=== PATIENT | female | born 1985 | race Caucasian/White ===

== ENCOUNTER → 2017-10-04 | Outpatient (CLI) | payer OTHER ==
[~2017-10-04] MED LIST: ASPI-390 PO; AZIT-57 PO; IMD2X PO; LEVE500T13 PO; LYR100 PO; MEDR150I IM; PROM25TA9 PO; RANI150T85 PO
[2017-10-04 13:12] LABS: BASO % 0.3 %; BASO ABS # 0.04 K/uL (0-0.2); EOS % 2.6 %; EOS ABS # 0.36 K/uL (0-0.5); HEMATOCRIT 32.9 % (37-47); IG# 0.05 K/uL (0.00-0.02); LYMPH % 29.8 %; LYMPH ABS # 4.12 K/uL (1.2-3.4); MEAN CELL VOLUME 76.3 fL (80-100); MEAN CORPUSCULAR HEMOGLOBIN 25.5 pg (25-34); MEAN CORPUSCULAR HGB CONC 33.4 g/dl (32-36); MEAN PLATELET VOLUME 9.3 fL (7.4-10.4); MONO % 5.6 %; MONO ABS # 0.77 K/uL (0.11-0.59); NEUT % 61.3 %; NEUT ABS # 8.47 K/uL (1.4-6.5); PLATELET COUNT 514 K/uL (130-400); RED CELL DISTRIBUTION WIDTH CV 16.5 % (11.5-14.5); RED CELL DISTRIBUTION WIDTH SD 46.3 fL (36.4-46.3); WHITE BLOOD COUNT 13.81 K/uL (4.8-10.8)
[2017-10-04 13:43] LABS: HEMOGLOBIN A1C 5.8 % (4.5-5.6)
[2017-10-04 13:52] LABS: ALBUMIN 4.4 gm/dl (3.4-5.0); ALT/SGPT 17 U/L (12-78); AST/SGOT 11 U/L (15-37); BLOOD UREA NITROGEN 13 mg/dl (7-18); CALCIUM 8.7 mg/dl (8.5-10.1); CARBON DIOXIDE 15 mmol/L (21-32); GLUCOSE 91 mg/dl (70-99); POTASSIUM 3.4 mmol/L (3.5-5.1); SODIUM 137 mmol/L (136-145)
[2017-10-04 14:02] LABS: ALKALINE PHOSPHATASE 66 U/L (45-117); TOTAL PROTEIN 8.9 gm/dl (6.4-8.2)
== END | disposition home or self-care (01) ==
LOC: C.LABBC 11:22
PROVIDERS: ATTEND Physician Assistant Medical
DX: D64.9 Anemia, unspecified (principal); N18.9 Chronic kidney disease, unspecified; R73.9 Hyperglycemia, unspecified; K31.84 Gastroparesis

== ENCOUNTER 2020-03-25 12:21 | Observation (INO) ==
[2020-03-25] MEDS ORDERED: ALBUTEROL HFA 8 GM INHALER INH ONE (13:13)
[2020-03-25] MEDS ORDERED: KETOROLAC TROMETHAMINE 15 MG/ML VIAL IV STA (13:13)
[2020-03-25] MEDS ORDERED: BENZONATATE 100 MG CAPSULE PO ONE (13:13)
[2020-03-25] MEDS ORDERED: SODIUM CHLORIDE 0.9% 1000ML 1,000 ML IV SCH ×2 (13:17→16:04)
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
[2020-03-25 14:06] LABS: POC Urine Bilirubin Negative (Negative); POC Urine Blood Negative (Negative); POC Urine Glucose Normal (Normal); POC Urine Ketones Negative (Negative); POC Urine Leukocytes Negative (Negative); POC Urine Nitrite Negative (Negative); POC Urine Protein Trace (Negative); POC Urine Urobilinogen Normal (Normal); POC Urine pH 5 (4.5-7.5)
[2020-03-25 14:08] LABS: Hematocrit (blood only) 31.4 % (37-47); Hemoglobin 10.6 g/dL (12.0-16.0); Mean Corpuscular Hemoglobin 27.3 pg (25-34); Mean Corpuscular Hgb Conc 33.8 g/dL (32-36); Mean Corpuscular Volume 80.9 fL (80-100); Mean Platelet Volume 9.1 fL (7.4-10.4); Platelet Count 435 K/uL (130-400); RDW Coefficient of Variation 13.6 % (11.5-14.5); RDW Standard Deviation 40.3 fL (36.4-46.3); Red Blood Count 3.88 M/uL (4.2-5.4); White Blood Count 26.63 K/uL (4.8-10.8)
[2020-03-25 14:24] LABS: Basophils # (auto) 0.02 K/uL (0-0.2); Basophils % (auto) 0.1 %; Eosinophils # (auto) 0.07 K/uL (0-0.5); Eosinophils % (auto) 0.3 %; Immature Granulocytes # (auto) 0.12 K/uL (0.00-0.02); Immature Granulocytes % (auto) 0.5 %; Lymphocytes # (auto) 2.25 K/uL (1.2-3.4); Lymphocytes % (auto) 8.4 %; Monocytes # (auto) 1.18 K/uL (0.11-0.59); Monocytes % (auto) 4.4 %; Neutrophils # (auto) 22.99 K/uL (1.4-6.5); Neutrophils % (auto) 86.3 %
--- NOTE | 2020-03-25 14:34 | XRay Report ---
XR chest 1V portable CLINICAL HISTORY: CHEST PAIN, COUGH COMPARISON STUDY: 01/15/2016 FINDINGS: The heart is at the upper limits of normal in size. There is right paratracheal soft tissue prominence. Mild adenopathy cannot be excluded. There are bilateral pulmonary airspace opacities lef t greater than right, suspicious for a multifocal pneumonia.[ IMPRESSION: 1. Bilateral pulmonary airspace opacities left greater than right, suspicious for a multifocal pneumo kary 2. Right paratracheal soft tissue prominence. Reactive adenopathy cannot be excluded 3. Clinical and radiographic follow-up recommended ACT 112: Negative or not required by law. Electronically signed by: Yossi Allison M.D. 03/25/2020 2:32 PM
[2020-03-25 14:36] LABS: Alanine Aminotransferase 17 U/L (12-78); Albumin Level 3.3 gm/dl (3.4-5.0); Aspartate Aminotransferase 46 U/L (15-37); BUN Creatinine Ratio 11.1 (10-20); Blood Urea Nitrogen 14 mg/dl (7-18); Calcium 8.7 mg/dl (8.5-10.1); Carbon Dioxide 20 mmol/L (21-32); Chloride 111 mmol/L (98-107); Creatinine Clr Calc Pharmacy 55.4 ml/min; Est GFR (African American) 65.8; Est GFR (Non-African American) 56.8; Glucose 122 mg/dl (70-99); Sodium 139 mmol/L (136-145)
[2020-03-25 14:47] LABS: Albumin Globulin Ratio 0.9 (0.9-2); Alkaline Phosphatase 53 U/L (45-117); Bilirubin,Total 0.3 mg/dl (0.2-1); Globulin 3.7 gm/dl (2.5-4.0); Thyroid Stimulating Hormone 0.929 uIu/ml (0.300-4.500); Troponin I < 0.015 ng/ml (0-0.045)
[2020-03-25] MEDS ORDERED: cefTRIAXone SODIUM 2,000 MG/70 ML BAG IV STA (16:03)
[2020-03-25] MEDS ORDERED: DOXYCYCLINE HYCLATE 100 MG in DEXTROSE 5% 100 ML IV STA (16:03)
[2020-03-25 17:19] LABS: HCO3 VBG 21 mmol/L; PCO2 VBG 45 mmHg (38-50); PO2 VBG 30 mmHg; pH VBG 7.28 (7.36-7.41)
[2020-03-25 17:21] LABS: Oxygen Saturation VBG < 60.0 %
[2020-03-25] MEDS: SODIUM CHLORIDE 0.9% 1000ML 1,000 ML IV SCH ×2 (17:42→20:51)
--- NOTE | 2020-03-25 18:16 | History & Physical Report ---
Date of Service March 25, 2020 Assessment & Plan (1) PNA (pneumonia): Noted on CXR Started on ceftriaxone/doxy in the ED, will continue (azithro allergy) COVID neg Flu pending Blood cx pending WBC elevated Preg test neg (2) BRETT (acute kidney injury): Likely dehydration related to PNA IVF Monitor (3) Somnolence: Concern from ED about possible substance injestion Utox pending collection Pt is difficult to arouse and does not keep her eyes open for long, likely this is mild exacerbation of MG in the setting of other illness Pt also reports that she has this issue when she is ill TSH WNL (4) Myasthenia gravis: Pt is very difficult to arouse, likely related to her MG status continue home meds (5) Seizure disorder: levetiracetam levels pending Denies current seizures (6) Hypothyroidism: continue home meds (7) Fibromyalgia: continue home meds (8) Crohn's disease: Noted (9) Anemia: Hb baseline 10-11 Hb 10.6 on admission (10) DVT prophylaxis: Heparin for DVT proph History of Present Illness Primary Care Provider: Uriah Bucio MD 34 y/o F c/o feeling unwell since last . Pt is very difficult to arouse. She states "that is how I get when I am sick". Has had fevers, body aches since that time. Decreased PO. Denies missing any meds or taking extra meds. Pt denies SOB, chest pain, abd pain, n/v/c/d, LE pain or swelling. Pt states her seizures are well controlled and no seizures in years. Allergies Allergy/AdvReac Type Severity Reaction Status Date / Time codeine Allergy Severe RASH, RESP Verified 03/25/20 13:35 PROBLEMS Cipro Allergy Mild ITCHY Verified 11/13/15 22:59 ciprofloxacin Allergy Mild ITCHY Verified 03/25/20 13:35 aspirin [From Soma Compound] Allergy Unknown Unknown Unverified 03/25/20 13:35 sumatriptan Allergy Unknown SWELLING Verified 03/25/20 13:35 carisoprodol AdvReac Mild irrational Verified 03/25/20 13:35 behavior metoclopramide AdvReac Mild shaking Verified 03/25/20 13:35 morphine AdvReac Mild acts Verified 03/25/20 13:35 irrational azithromycin AdvReac Unknown [email or web address] Verified 03/25/20 13:35 sis topiramate [From Topamax] AdvReac insomnia Unverified 03/25/20 13:35 Home Medications Home Medications Medication Instructions Recorded Confirmed Type rizatriptan 10 mg disintegrating 10 mg PO Q2H PRN tab 04/14/19 03/25/20 History tablet levothyroxine 50 mcg tablet 50 mcg PO DAILY tab 05/07/19 03/25/20 History medroxyprogesterone 150 mg/mL 150 mg IM USEASDIRECTD ml 05/07/19 03/25/20 History intramuscular suspension pyridostigmine bromide 60 mg tablet 60 mg PO TID PRN tab 05/07/19 03/25/20 History levetiracetam 500 mg tablet 500 mg PO BID 30 Days #60 tab 07/03/19 03/25/20 Rx CBD oil See Rx Instructions .ROUTE 07/28/19 03/25/20 Rx .COMPLEX #1 ea pregabalin 100 mg capsule 100 mg PO QAM #30 cap 11/03/19 03/25/20 Rx pregabalin 50 mg capsule 50 mg PO QPM #30 cap 02/07/20 03/25/20 Rx pregabalin 150 mg capsule 150 mg PO ONCE #30 cap 03/05/20 03/25/20 Rx promethazine 25 mg tablet See Rx Instructions .ROUTE 03/18/20 03/25/20 Rx .COMPLEX #20 tablet Past Med/Surg History Medical History Crohn's disease Fibromyalgia Hypothyroidism Migraine syndrome Myasthenia gravis Seizure disorder (08/24/11) Surgical History History of lithotripsy S/P cholecystectomy S/P tonsillectomy and adenoidectomy Status post tubal ligation Family History Mother Diabetes Chronic kidney disease Hyperlipidemia Peripheral vascular disease Kidney disease Father Low back pain Brother Mental disability Family/Other Migraine headache Social History Smoking Status: Current every day smoker Tobacco Type: E-cigarettes / Vaping marital status: current occupational status: disabled Feels Safe at Home: Yes Review of Systems Review of Systems: Pertinent positives and negatives reviewed in HPI--all others negative Physical Exam Constitutional: WD/WN, vitals as above + ill appearing Eyes: normal visual chen by confrontation and + anicteric sclerae eyes are difficult for pt to open Neck: normal visual inspection and trachea midline Respiratory: normal respiratory effort, lungs clear to auscultation Cardiovascular: Rate/Rhythm: regular rate and regular rhythm Gastrointestinal (Abdomen): Inspection/Auscultation: abdomen not distended Percussion/Palpation: abdomen soft; abdomen nontender Musculoskeletal: Head/Neck/Chest: normocephalic and head atraumatic negative for edema, peripheral pulses intact Skin: no rashes, warm and dry Neurologic: awake; not confused Speech / Cognition: + abnormal speech (trails off prior to finishing sentences) Psychiatric: Orientation: oriented to person, oriented to place, oriented to time and cooperative Affect: + blunted affect Results & Data Results & Data ([facility]) Vital Signs (Past 12 Hours) Vital Signs Temp Pulse Resp BP Pulse Ox 03/25/20 16:30 70 16 91 03/25/20 16:22 71 13 124/79 03/25/20 16:00 75 21 99/56 L 03/25/20 15:30 77 15 103/55 L 03/25/20 15:28 78 20 03/25/20 15:27 74 11 L 96/55 L 03/25/20 15:15 78 13 03/25/20 15:00 77 12 03/25/20 14:45 79 14 03/25/20 14:30 78 14 03/25/20 14:15 83 12 03/25/20 14:00 79 17 03/25/20 13:50 85 18 03/25/20 13:49 80 13 105/55 L 03/25/20 13:30 87 13 96 03/25/20 13:00 94 H 14 97 03/25/20 12:50 90 15 94 03/25/20 12:38 90 15 124/48 L 95 03/25/20 12:31 37.4 C 96 H 18 124/48 L 95 Diagnostic Findings CXR: b/l L>R multifocal PNA Code Status & VTE Plan Code Status Pt unable to answer questions fully, entered as full but will need addressed VTE Prophylaxis Plan VTE Prophylaxis will be ordered: Yes PG Care Time/CCT Total # of Minutes Spent Total Time Spent with Patient: Total time spent is greater than 50% in coordination of care (as documented) at patient's floor/unit and/or counseling patient: Coding Level of Care Code 05275 Initial Inpt Care Lvl 3 Diagnoses PNA (pneumonia) J18.9 BRETT (acute kidney injury) N17.9 Somnolence R40.0 Myasthenia gravis G70.00 Seizure disorder G40.909 Hypothyroidism E03.9 Fibromyalgia M79.7 Crohn's disease K50.90 Anemia D64.9 DVT prophylaxis Z29.9
[2020-03-25 19:25] LABS: Influenza A virus by PCR Negative (Negative); Influenza B virus by PCR Negative (Negative)
[2020-03-25] MEDS ORDERED: ACETAMINOPHEN 325 MG TAB PO PRN (20:19)
[2020-03-25] MEDS ORDERED: MAGNESIUM HYDROXIDE SUSP 30 ML UDC PO PRN (20:19)
[2020-03-25] MEDS ORDERED: PROMETHAZINE HCL 25 MG TAB PO PRN (20:19)
[2020-03-25] MEDS ORDERED: PREGABALIN 150 MG CAP PO PRN (20:19)
[2020-03-25] MEDS ORDERED: PYRIDOSTIGMINE BROMIDE 60 MG TAB PO PRN (20:19)
[2020-03-25] MEDS ORDERED: ONDANSETRON INJ 2 MG/ML 2 ML VIAL IV PRN (20:19)
[2020-03-25] MEDS ORDERED: PREGABALIN 50 MG CAP PO SCH (21:00)
[2020-03-25 21:18] LABS: Amphetamines+Metham, Urine Neg (Neg); Barbiturates, Urine Neg (Neg); Benzodiazepine, Urine Neg (Neg); Cocaine, Urine Neg (Neg); MDMA (Ecstacy), Urine Neg (Neg); Methadone, Urine Neg (Neg); Opiate, Urine Neg (Neg); Phencyclidine, Urine Neg (Neg)
[2020-03-25] MEDS: levETIRAcetam 500 MG TAB PO SCH (21:21)
[2020-03-25] MEDS: HEPARIN SOD 5,000 UNIT/0.5 ML VIAL SQ SCH (21:21)
[2020-03-25] MEDS: SODIUM CHLORIDE 0.45 % 1,000 ML IV SCH (21:21)
[2020-03-26] MEDS: LEVOTHYROXINE SODIUM 50 MCG TABLET PO SCH (05:33)
--- NOTE | 2020-03-26 05:34 | Electrocardiogram Report ---
Test Reason : Blood Pressure : / mmHG Vent. Rate : 085 BPM Atrial Rate : 085 BPM P-R Int : 200 ms QRS Dur : 094 ms QT Int : 368 ms P-R-T Axes : 045 022 006 degrees QTc Int : 437 ms Normal sinus rhythm Possible Left atrial enlargement T wave abnormality, consider anterior ischemia Abnormal ECG When compared with ECG of 13-NOV-2015 23:07, QT has shortened Confirmed by William Carl ([id number]) on 03/26/2020 5:34:19 AM Referred By: REFERRED SELF Confirmed By:William Carl
[2020-03-26] MEDS: SODIUM CHLORIDE 0.45 % 1,000 ML IV SCH (05:35)
[2020-03-26] MEDS: HEPARIN SOD 5,000 UNIT/0.5 ML VIAL SQ SCH ×2 (08:04→21:02)
[2020-03-26] MEDS: DOXYCYCLINE HYCLATE 100 MG in DEXTROSE 5% 100 ML IV SCH ×2 (08:04→21:01)
[2020-03-26] MEDS: levETIRAcetam 500 MG TAB PO SCH ×2 (08:04→21:01)
[2020-03-26] MEDS: PREGABALIN 100 MG CAP PO SCH (08:06)
[2020-03-26 09:27] LABS: Basophils # (auto) 0.02 K/uL (0-0.2); Basophils % (auto) 0.1 %; Eosinophils # (auto) 0.29 K/uL (0-0.5); Eosinophils % (auto) 1.8 %; Hematocrit (blood only) 32.6 % (37-47); Hemoglobin 10.8 g/dL (12.0-16.0); Immature Granulocytes # (auto) 0.04 K/uL (0.00-0.02); Immature Granulocytes % (auto) 0.2 %; Lymphocytes # (auto) 3.09 K/uL (1.2-3.4); Lymphocytes % (auto) 18.8 %; Mean Corpuscular Hgb Conc 33.1 g/dL (32-36); Mean Corpuscular Volume 81.5 fL (80-100); Mean Platelet Volume 9.2 fL (7.4-10.4); Monocytes # (auto) 0.88 K/uL (0.11-0.59); Monocytes % (auto) 5.4 %; Neutrophils # (auto) 12.08 K/uL (1.4-6.5); Neutrophils % (auto) 73.7 %; Platelet Count 413 K/uL (130-400); RDW Coefficient of Variation 13.9 % (11.5-14.5)
[2020-03-26 09:59] LABS: BUN Creatinine Ratio 11.3 (10-20); Calcium 8.5 mg/dl (8.5-10.1); Creatinine Clr Calc Pharmacy 89.8 ml/min; Est GFR (African American) 115.9; Magnesium 1.6 mg/dl (1.8-2.4); Phosphorus 1.9 mg/dl (2.5-4.9); Potassium 3.9 mmol/L (3.5-5.1)
--- NOTE | 2020-03-26 13:07 | Hospitalist Progress Note ---
Date of Service March 26, 2020 Assessment & Plan (1) PNA (pneumonia): Multifocal. Noted on CXR. - Continue ceftriaxone/doxy - Much improved today. Likely discharge on cefdinir & doxycycline given levofloxacin can precipitate myasthenia crisis. (2) BRETT (acute kidney injury): Baseline normal Cr ~0.7. - Up to 1.23 on admission. - Resolved with IV fluids. (3) Myasthenia gravis: On 03/26, she is at baseline per her report. No breathing issues, no fatigue in eyes or arms, no swallowing issues. - Continue home meds - Avoid medications that can trigger crisis. (4) Somnolence: Concern from ED about possible substance ingestion; however, Utox negative. Per patient and sister, she has this issue when she is ill. - TSH WNL - Resolved by 03/26. (5) Seizure disorder: Denies current seizures. - Continue home meds - Levetiracetam level pending (6) Hypothyroidism: TSH was 0.93 during this admission. No signs/symptoms of hypo- /hyperthyroidism. - Continue home Synthroid 50 mcg (7) Fibromyalgia: No pain at present. - Continue home meds (8) Crohn's disease: Noted. (9) Anemia: Hb baseline 10-11. Hb 10.6 on admission. - Monitor (10) DVT prophylaxis: Heparin 5,000 units SQ Q12h Admission and Anticipated Discharge Date Admission Date: March 25, 2020 Subjective Much, much improved today. Much more alert and awake. Cough and shortness of breath improved. Reports no fevers/chills, chest pain, abdominal pain, nausea, or vomiting. Physical Exam Constitutional: WD/WN, vitals as above Eyes: EOM intact bilaterally; no conjunctival abnormality ENMT: external ear and nose normal, oropharynx normal Neck: trachea midline, no thyromegaly normal visual inspection Respiratory: no respiratory distress Auscultation: + crackles (LLL) Cardiovascular: RRR, no murmur, no edema Gastrointestinal (Abdomen): Inspection/Auscultation: abdomen normal to inspection; abdomen not distended Musculoskeletal: no cyanosis or clubbing, extremities motor strength 5/5 Skin: no rashes, warm and dry Neurologic: moves all extremities and awake Psychiatric: Orientation: alert, oriented to person and cooperative Results & Data Results & Data ([facility]) Vital Signs (Past 12 Hours) Vital Signs Temp Pulse Resp BP Pulse Ox 03/26/20 10:58 37.2 C 95 H 19 129/86 98 03/26/20 07:11 36.4 C L 89 19 122/77 99 03/26/20 04:00 36.8 C 89 20 122/78 98 PG Care Time/CCT Total # of Minutes Spent Total Time Spent with Patient: Total time spent is greater than 50% in coordination of care (as documented) at patient's floor/unit and/or counseling patient: Coding Level of Care Code 34598 Subseq Hosp Care Lvl 2 Diagnoses PNA (pneumonia) J18.9 BRETT (acute kidney injury) N17.9 Myasthenia gravis G70.00 Somnolence R40.0 Seizure disorder G40.909 Hypothyroidism E03.9 Fibromyalgia M79.7 Crohn's disease K50.90 Anemia D64.9 DVT prophylaxis Z29.9
[2020-03-26] MEDS ORDERED: cefTRIAXone SODIUM 1,000 MG in DEXTROSE 5% 50 ML IV SCH (17:00)
[2020-03-26] MEDS: POT PHOSPHATE MONOBASIC W/ SOD TAB PO SCH ×2 (17:01→21:01)
[2020-03-26] MEDS ORDERED: PREGABALIN 150 MG CAP PO PRN (19:17)
[2020-03-26] MEDS ORDERED: PREGABALIN 50 MG CAP PO SCH (19:25)
[2020-03-27] MEDS: LEVOTHYROXINE SODIUM 50 MCG TABLET PO SCH (05:48)
[2020-03-27 07:33] VITALS: BP 97/63; TEMP 98.4; O2SAT 96
[2020-03-27 07:37] LABS: Hematocrit (blood only) 29.9 % (37-47); Hemoglobin 10.1 g/dL (12.0-16.0); Mean Corpuscular Hemoglobin 27.2 pg (25-34); Mean Corpuscular Hgb Conc 33.8 g/dL (32-36); Mean Corpuscular Volume 80.6 fL (80-100); Mean Platelet Volume 9.2 fL (7.4-10.4); Platelet Count 418 K/uL (130-400); RDW Coefficient of Variation 13.8 % (11.5-14.5); RDW Standard Deviation 40.7 fL (36.4-46.3); Red Blood Count 3.71 M/uL (4.2-5.4); White Blood Count 10.58 K/uL (4.8-10.8)
[2020-03-27] MEDS: PREGABALIN 100 MG CAP PO SCH (07:55)
[2020-03-27] MEDS: levETIRAcetam 500 MG TAB PO SCH (07:55)
[2020-03-27] MEDS: POT PHOSPHATE MONOBASIC W/ SOD TAB PO SCH (07:56)
[2020-03-27] MEDS: HEPARIN SOD 5,000 UNIT/0.5 ML VIAL SQ SCH (07:57)
[2020-03-27 08:11] LABS: BUN Creatinine Ratio 10.6 (10-20); Creatinine Clr Calc Pharmacy 82.3 ml/min; Est GFR (African American) 104.4; Magnesium 1.7 mg/dl (1.8-2.4); Potassium 3.4 mmol/L (3.5-5.1)
[2020-03-27 08:12] LABS: Phosphorus 4.2 mg/dl (2.5-4.9)
[2020-03-27 08:41] VITALS: PULSE 85
--- NOTE | 2020-03-27 22:02 | Discharge Summary ---
Date of Service March 27, 2020 Admission HPI Per Admitting Provider 34 y/o F c/o feeling unwell since last . Pt is very difficult to arouse. She states "that is how I get when I am sick". Has had fevers, body aches since that time. Decreased PO. Denies missing any meds or taking extra meds. Pt denies SOB, chest pain, abd pain, n/v/c/d, LE pain or swelling. Pt states her seizures are well controlled and no seizures in years. Principal Diagnosis Community-acquired pneumonia Discharge Exam Constitutional WD/WN, vitals as above Eyes EOM intact bilaterally; no conjunctival abnormality ENMT external ear and nose normal, oropharynx normal Neck trachea midline, no thyromegaly normal visual inspection Respiratory no respiratory distress Auscultation: + crackles (LLL) Cardiovascular RRR, no murmur, no edema Gastrointestinal (Abdomen) Inspection/Auscultation: abdomen normal to inspection; abdomen not distended Musculoskeletal no cyanosis or clubbing, extremities motor strength 5/5 Skin no rashes, warm and dry Neurologic moves all extremities and awake Psychiatric Orientation: alert, oriented to person and cooperative Discharge Data Allergies Allergy/AdvReac Type Severity Reaction Status Date / Time codeine Allergy Severe RASH, RESP Verified 03/25/20 13:35 PROBLEMS Cipro Allergy Mild ITCHY Verified 11/13/15 22:59 ciprofloxacin Allergy Mild ITCHY Verified 03/25/20 13:35 aspirin [From Soma Compound] Allergy Unknown Unknown Unverified 03/25/20 13:35 sumatriptan Allergy Unknown SWELLING Verified 03/25/20 13:35 carisoprodol AdvReac Mild irrational Verified 03/25/20 13:35 behavior metoclopramide AdvReac Mild shaking Verified 03/25/20 13:35 morphine AdvReac Mild acts Verified 03/25/20 13:35 irrational azithromycin AdvReac Unknown [email or web address] Verified 03/25/20 13:35 sis topiramate [From Topamax] AdvReac insomnia Unverified 03/25/20 13:35 Consultations 03/25/20 16:22 ED Decision to Admit Stat Hospital Course (1) PNA (pneumonia): Multifocal. Noted on CXR. - Continued ceftriaxone/doxy while inpatient. - Much improved today. Discharged on cefdinir & doxycycline given levofloxacin can precipitate myasthenia crisis. (2) BRETT (acute kidney injury): Baseline normal Cr ~0.7. - Up to 1.23 on admission. - Resolved with IV fluids. (3) Myasthenia gravis: On 03/26, she is at baseline per her report. No breathing issues, no fatigue in eyes or arms, no swallowing issues. - Continue home meds - Avoid medications that can trigger crisis. (4) Somnolence: Concern from ED about possible substance ingestion; however, Utox negative. Per patient and sister, she has this issue when she is ill. - TSH WNL - Resolved by 03/26. (5) Seizure disorder: Denies current seizures. - Continue home meds - Levetiracetam level pending (6) Hypothyroidism: TSH was 0.93 during this admission. No signs/symptoms of hypo- /hyperthyroidism. - Continue home Synthroid 50 mcg (7) Fibromyalgia: No pain at present. - Continue home meds (8) Crohn's disease: Noted. (9) Anemia: Hb baseline 10-11. Hb 10.6 on admission. - Monitor (10) DVT prophylaxis: Heparin 5,000 units SQ Q12h Total Time Total Time Spent Total Time Spent (In Minutes): 35 Discharge Plan Discharge Items Patient Disposition: Home - Self-Care Reason For Visit: PNA Discharge Diagnosis: Pneumonia Activity: Resume your previous activity Non-emergency contact: Primary Care Provider Call non-emergency contact if: your symptoms worsen and your temperature is above 101 Follow-up/Referrals: Uriah Bucio MD [Primary Care Provider] - 04/02/20 2:00 pm (Appointment will be with Saundra Alejandra) Diet: Regular Addtl Attending Provider Instructions: Ms. Aponte, You were diagnosed with pneumonia. We gave you antibiotics which have rapidly made you feel better. Please take your next dose of both antibiotics this evening before bedtime. You will take them each twice a day until they are gone (for the next 5 days). Please follow up with Dr. Bucio next week to be sure you are doing well. If you start to experience any neurologic symptoms (weakness), please contact your neurologist. Pending Studies at Discharge: No Stand-Alone Forms: My [employer], Smoking Cessation Medications and DC Order Prescriptions: New cefdinir 300 mg capsule 300 mg PO BID 5 Days Qty: 10 RF: 0 doxycycline hyclate 100 mg capsule 100 mg PO BID Qty: 10 RF: 0 Continued levetiracetam 500 mg tablet 500 mg PO BID 30 Days Qty: 60 RF: 2 CBD oil See Rx Instructions .ROUTE .COMPLEX Qty: 1 RF: 0 pregabalin [Lyrica] 100 mg capsule 100 mg PO QAM Qty: 30 RF: 4 pregabalin [Lyrica] 50 mg capsule 50 mg PO QPM Qty: 30 RF: 1 pregabalin 150 mg capsule 150 mg PO ONCE Qty: 30 RF: 1 promethazine 25 mg tablet See Rx Instructions .ROUTE .COMPLEX Qty: 20 RF: 0 rizatriptan 10 mg tablet,disintegrating 10 mg PO Q2H PRN (Reason: Headache) RF: 0 pyridostigmine bromide 60 mg tablet 60 mg PO TID PRN (Reason: Muscle Pain) RF: 0 medroxyprogesterone 150 mg/mL suspension 150 mg IM USEASDIRECTD RF: 0 levothyroxine 50 mcg tablet 50 mcg PO DAILY RF: 0 Discharge Orders: Discharge Order (Routine); Ordered 03/27/20 Ordered By: Yuriy Sharif Admission Data Admit Date/Time: 03/25/20 18:11 Attending Provider: Yuriy Sharif Admit Provider: Dedra Pederson Primary Care Provider: Uirah Bucio Other Providers: Dedra Pederson Other Interventions: Discharge Summary Assessment (RN) Last Done: 03/27/20 08:39 Coding Level of Care Code D/C Day Management >30 mins Diagnoses PNA (pneumonia) J18.9 BRETT (acute kidney injury) N17.9 Myasthenia gravis G70.00 Somnolence R40.0 Seizure disorder G40.909 Hypothyroidism E03.9 Fibromyalgia M79.7 Crohn's disease K50.90 Anemia D64.9 DVT prophylaxis Z29.9
== END 2020-03-27 09:30 | disposition home or self-care (01) ==
LOC: ED 12:21 → INTOOBSV 18:11 → 2S 18:11 → SUATTDRO 18:11 → 2S 19:11 → 2N 03-26 18:16
DX: E03.9 Hypothyroidism, unspecified; Z88.6 Allergy status to analgesic agent; Z88.1 Allergy status to other antibiotic agents; Z88.8 Allergy status to other drugs, medicaments and biological substances; Z87.891 Personal history of nicotine dependence; N17.9 Acute kidney failure, unspecified; Z79.899 Other long term (current) drug therapy; Z20.828 Contact with and (suspected) exposure to other viral communicable diseases; R40.0 Somnolence; G70.00 Myasthenia gravis without (acute) exacerbation; R05 Cough; K50.90 Crohn's disease, unspecified, without complications; Z88.5 Allergy status to narcotic agent; D64.9 Anemia, unspecified; G40.909 Epilepsy, unspecified, not intractable, without status epilepticus; J18.9 Pneumonia, unspecified organism; M79.7 Fibromyalgia

== ENCOUNTER 2021-12-09 14:28 | Observation (INO) ==
[2021-12-09] MEDS ORDERED: SODIUM CHLORIDE 0.9% 1000ML 1,000 ML IV SCH (14:45)
--- NOTE | 2021-12-09 14:53 | Emergency Department Note ---
Impression & Plan Altered mental status, Tachycardia, Leukocytosis, BRETT (acute kidney injury) ED Provider Note NAME: DEMETRIUS THOMAS AGE: 36 SEX: F : 1985 ARRIVES VIA: Ambulance INFORMANT: [Patient][police, ems] ED PROVIDER(S): [Umair Barriga MD] CHIEF COMPLAINT: Altered mental state HISTORY OF PRESENT ILLNESS: The patient is a 36-year-old female who was apparently wandering around in the [employer] store for several hours. She seemed confused, tired, sleepy and lethargic. The police were called. The patient was brought by ambulance for evaluation. The patient denies any pain. She is a very poor historian though. She is quite sleepy. There has been no reported trauma. Given her mental state, no further history obtainable. REVIEW OF SYSTEMS: Unobtainable given the mental state. PMHx/PSHx: See Below SOCIAL HISTORY: See Below. PHYSICAL EXAM: GENERAL: Patient is in no acute distress. HEENT: No acute trauma, normocephalic atraumatic, mucous membranes dry, no nasal congestion, no scleral icterus. NECK: No stridor, no adenopathy, no meningismus, trachea is midline. LUNGS: Clear to auscultation bilaterally, no wheeze, no rhonchi, breath sounds equal. HEART: Subtle systolic murmur, regular rhythm, mildly tachycardic ABDOMEN: Soft, nontender, bowel sounds positive, no peritonitis. EXTREMITIES: No cyanosis or edema, full range of motion of all the joints without pain or difficulty, no signs for acute trauma. There are some dark m arks on both anterior knees consistent with crawling on the knees, no laceration requiring repair. NEUROLOGIC: Awakes to voice, answers questions, moves all extremities, quite sleepy. Becomes agitated when stimulated. SKIN: No rash, no jaundice, no diaphoresis. DIFFERENTIAL DIAGNOSIS: Infection, drug abuse, alcohol abuse, sepsis, renal or liver failure, dehydration, metabolic abnormality, hypo/hyperglycemia, electrolyte disturbance, anemia, hypoxia, cardiac sources, intracerebral event, toxicologic issues, stroke, TIA, as well as other pathologies. EMERGENCY DEPARTMENT COURSE/PROCEDURES: ECG: Indication was altered mental state. The ECG shows a sinus tachycardia with a rate of 114. There is no ST elevation, no PVCs. There is an incomplete right bundle-branch block. The QTc is 452. Continuous Cardiac Monitoring: An order was placed for continuous cardiac monitoring. The monitor shows a rate of 113 with sinus tachycardia. Critical Care Note: I have personally spent 49 minutes of critical care time in the direct management of this patient. This includes bedside care, i nterpretation of diagnostic studies, and testing, discussion with consultants, patient, and family members, and other required patient management activities. This 49 minutes is in excess of all separately billable procedures. MEDICAL DECISION MAKING: There is a moderate leukocytosis at 15,000, this type of elevation has been documented before. This could be consistent with infection or the stress of her situation. There is a mild anemia with a hemoglobin of 11.5. Platelet count slightly elevated at 429. Creatinine was elevated consistent with some mild acute kidney injury. No electrolyte abnormality in need of emergent correction. Lactic acid level was not elevated. No concerning liver enzyme elevation. Ammonia level was not elevated. ECG shows a sinus tachycardia, no ischemia. Cardiac enzyme testing x1 is not consistent with acute cardiac injury. The pa tiegabriel appeared to be in a euthyroid state. Urinalysis did not show infection. Urine tox is pending. Alcohol, Tylenol and alcohol levels were undetectable. COVID test was negative. Chest film did not show pneumonia or CHF. Brain CT showed no acute bleed or mass-effect. On exam, the patient was somnolent and somewhat agitated when stimulated. There was no meningismus. I talked to the patient's who arrived later, he states that she was fine today without complaints. She was at [facility] and then suddenly, seemed confused and altered. He states this has happened to her before and no diagnosis has ever been made. He thinks it may have some to do with her poor sleep. He thinks she has some sort of sleep disorder. The patient received IV saline, 1 L. She was given IV Toradol, IV Tylenol, she received IV ceftriaxone as empiric antibiotic coverage. I had considered performing a lumbar puncture however, the patient apparently was fine 1 minute and then not fine the next. This does not fit with meningitis. She was not complaining of a headache earlier and had not run a f ever. I do not think the lumbar puncture is currently indicated. I spoke with the patient and the , I spoke with case management, the on- call hospitalist was consulted. Past Med/Surg History Medical History Crohn's disease Fibromyalgia Hypothyroidism Migraine syndrome Multifocal pneumonia Myasthenia gravis Seizure disorder (08/24/11) Surgical History History of lithotripsy S/P cholecystectomy S/P tonsillectomy and adenoidectomy Status post tubal ligation Family History Mother Diabetes Chronic kidney disease Hyperlipidemia Peripheral vascular disease Kidney disease Father Low back pain Brother Mental disability Family/Other Migraine headache Social History Smoking Status: Unknown if ever smoked Tobacco Type: E-cigarettes / Vaping Second Hand Exposure: No; Hx Alcohol Use: No Hx Substance Use: No Preferred Language: Citizen Of [place] Communication Ability: Effective Beliefs That Will Affect Care: None marital status: Current Living Situation: Family current occupational status: disabled Feels Safe at Home: Yes caffeine: Yes Dental Care, Regularly: No Physical Activity Frequency: 5-6 Times per Week Seatbelt Use: always Sunscreen Use: Yes Assistive Devices: None Allergies Allergies Allergy/AdvReac Type Severity Reaction Status Date / Time codeine Allergy Severe RASH, RESP Verified 07/02/21 11:03 PROBLEMS ciprofloxacin Allergy Mild ITCHY Verified 07/02/21 11:03 aspirin [From Soma Compound] Allergy Unknown Unknown Verified 07/02/21 11:03 sumatriptan Allergy Unknown SWELLING Verified 07/02/21 11:03 carisoprodol AdvReac Mild irrational Verified 07/02/21 11:03 behavior metoclopramide AdvReac Mild shaking Verified 07/02/21 11:03 morphine AdvReac Mild acts Verified 07/02/21 11:03 irrational azithromycin AdvReac Unknown rhabdomyoly Verified 07/02/21 11:03 sis topiramate [From Topamax] AdvReac insomnia Verified 07/02/21 11:03 Home Meds Home Medications Medication Instructions Recorded Confirmed medroxyprogesterone 150 mg/mL 150 mg IM .[id number] ml 05/07/19 07/02/21 intramuscular suspension Previous Rx's Medication Instructions Recorded cholecalciferol (vitamin D3) 25 25 mcg PO DAILY #30 cap 05/22/21 mcg (1,000 unit) capsule prednisone 5 mg tablet 5 mg PO DAILY #60 tab 08/04/21 pregabalin 50 mg capsule 50 mg PO DAILY #30 cap 08/11/21 prednisone 10 mg tablet See Rx Instructions PO DAILY #7 tab 09/11/21 rizatriptan 10 mg tablet See Rx Instructions .ROUTE 10/03/21 .COMPLEX #9 tab levetiracetam 500 mg tablet See Rx Instructions .ROUTE 11/10/21 .COMPLEX #60 tab prednisone 1 mg tablet See Rx Instructions PO DAILY #60 11/21/21 tab prednisone 10 mg tablet 10 mg PO DAILY #30 tab 11/21/21 promethazine 25 mg tablet See Rx Instructions .ROUTE 11/28/21 .COMPLEX #20 tab pregabalin 150 mg capsule 150 mg PO AMHS #60 cap 12/02/21 Results & Data (ED) Vital Signs Vital Signs - 24 hr 12/09/21 14:43 12/09/21 14:51 12/09/21 15:00 Temperature 36.8 C Temperature Source Oral Pulse Rate 120 H 108 H 106 H Pulse Rate from SpO2 Sensor 108 H 104 H Respiratory Rate 10 L 19 8 L Blood Pressure 178/112 H Blood Pressure Mean 134 Pulse Oximetry 94 93 91 Oxygen Delivery Method Room Air Sepsis Recent Fever Within 48 Hours No Sepsis New/Unexplained Change in Mental Status Yes Sepsis Action Taken by Nursing No Action Required 12/09/21 15:30 12/09/21 15:47 12/09/21 16:00 Temperature Temperature Source Pulse Rate 99 H 89 93 H Pulse Rate from SpO2 Sensor 99 H 89 94 H Respiratory Rate 8 L 12 15 Blood Pressure 131/87 Blood Pressure Mean 101 Pulse Oximetry 92 94 91 Oxygen Delivery Method Sepsis Recent Fever Within 48 Hours Sepsis New/Unexplained Change in Mental Status Sepsis Action Taken by Nursing 12/09/21 16:02 12/09/21 16:30 12/09/21 17:00 Temperature Temperature Source Pulse Rate 99 H 84 82 Pulse Rate from SpO2 Sensor 101 H 85 82 Respiratory Rate 23 14 Blood Pressure 160/122 H 95/73 L Blood Pressure Mean 134 80 Pulse Oximetry 91 92 91 Oxygen Delivery Method Sepsis Recent Fever Within 48 Hours Sepsis New/Unexplained Change in Mental Status Sepsis Action Taken by Nursing 12/09/21 17:02 Temperature Temperature Source Pulse Rate 88 Pulse Rate from SpO2 Sensor 90 Respiratory Rate 17 Blood Pressure 112/87 Blood Pressure Mean 95 Pulse Oximetry 95 Oxygen Delivery Method Sepsis Recent Fever Within 48 Hours Sepsis New/Unexplained Change in Mental Status Sepsis Action Taken by Longterm Medications Current Medication List: was personally reviewed by me Laboratory Data Attestation: I reviewed the patient's lab results. Result diagrams: 12/09/21 14:55 12/09/21 14:55 Lab Results 12/09/21 12/09/21 12/09/21 Range/Units 14:55 14:55 14:55 WBC 15.97 H (4.8-10.8) K/ul RBC 4.21 (3.93-5.22) M/uL Hgb 11.5 L (12.0-16.0) g/dl Hct 36.3 (34.1-44.9) % MCV 86.2 (80.0-100.0) fL MCH 27.3 (25.0-34.0) pg MCHC 31.7 L (32.0-36.0) g/dL RDW Std Deviation 44.8 (36.4-46.3) fL RDW Coeff of Hilario 14.2 (11.5-14.5) % Plt Count 429 H (130-400) K/uL MPV 9.8 (9.4-12.3) fL Immature Gran % (Auto) 0.4 % Neut % (Auto) 65.7 % Lymph % (Auto) 24.7 % Woodward % (Auto) 7.1 % Eos % (Auto) 1.7 % Baso % (Auto) 0.4 % Neut # (Auto) 10.48 H (1.4-6.5) K/uL Lymph # (Auto) 3.95 H (1.2-3.4) K/uL Woodward # (Auto) 1.14 H (0.24-0.82) K/uL Eos # (Auto) 0.27 (0-0.50) K/uL Baso # (Auto) 0.06 (0-0.2) K/uL Immature Gran # (Auto) 0.07 H (0.00-0.02) K/uL ESR (0-20) mm/hr Sodium 144 (136-145) mmol/L Potassium 3.9 (3.5-5.1) mmol/L Chloride 111 H (98-107) mmol/L Carbon Dioxide 22 (21-32) mmol/L Anion Gap 11 (3-11) BUN 16 (6-23) mg/dl Creatinine 1.24 H (0.6-1.2) mg/dl Est Cr Clr Drug Dosing 61.2 ml/min Est GFR ( Amer) 64.3 ml/min Est GFR (Non-Af Amer) 55.4 ml/min BUN/Creatinine Ratio 12.9 (10-20) Glucose 102 H (70-99(Fasting)) mg/dl Lactate (0.4-2.0) mmol/L Calcium 9.6 (8.5-10.1) mg/dl Magnesium 1.8 (1.7-2.4) mg/dl Total Bilirubin 0.3 (0.2-1.0) mg/dl AST 17 (13-39) U/L ALT 17 (7-52) U/L Alkaline Phosphatase 45 (34-104) U/L Ammonia (18-72) umol/L Total Creatine Kinase 179 (26-192) U/L Troponin I High Sens 6.7 (0-14) pg/ml C-Reactive Protein (0-0.5) mg/dl Total Protein 7.2 (6.0-8.3) gm/dl Albumin 4.1 (3.4-5.0) gm/dl Globulin 3.1 (2.5-4.0) gm/dl Albumin/Globulin Ratio 1.3 (0.9-2) TSH 3.621 (0.300-4.500) uIu/ml Urine Color Urine Appearance (Clear) Urine pH (4.5-7.5) Ur Specific [place] (1.000-1.030) Urine Protein (Negative) Urine Glucose (UA) (Negative) Urine Ketones (Negative) Urine Blood (Negative) Urine Nitrite (Negative) Urine Bilirubin (Negative) Urine Urobilinogen (Negative) Ur Leukocyte Esterase (Negative) Salicylates (3.0-30) mg/dl Acetaminophen (10-30) ug/ml Ethyl Alcohol mg/dL (<10.0) mg/dl SARS-CoV-2, RNA, NAAT (NEGATIVE) 12/09/21 12/09/21 12/09/21 Range/Units 14:55 14:55 15:06 WBC (4.8-10.8) K/ul RBC (3.93-5.22) M/uL Hgb (12.0-16.0) g/dl Hct (34.1-44.9) % MCV (80.0-100.0) fL MCH (25.0-34.0) pg MCHC (32.0-36.0) g/dL RDW Std Deviation (36.4-46.3) fL RDW Coeff of Hilario (11.5-14.5) % Plt Count (130-400) K/uL MPV (9.4-12.3) fL Immature Gran % (Auto) % Neut % (Auto) % Lymph % (Auto) % Woodward % (Auto) % Eos % (Auto) % Baso % (Auto) % Neut # (Auto) (1.4-6.5) K/uL Lymph # (Auto) (1.2-3.4) K/uL [place]ward # (Auto) (0.24-0.82) K/uL Eos # (Auto) (0-0.50) K/uL Baso # (Auto) (0-0.2) K/uL Immature Gran # (Auto) (0.00-0.02) K/uL ESR 26 H (0-20) mm/hr Sodium (136-145) mmol/L Potassium (3.5-5.1) mmol/L Chloride (98-107) mmol/L Carbon Dioxide (21-32) mmol/L Anion Gap (3-11) BUN (6-23) mg/dl Creatinine (0.6-1.2) mg/dl Est Cr Clr Drug Dosing ml/min Est GFR ( Amer) ml/min Est GFR (Non-Af Amer) ml/min BUN/Creatinine Ratio (10-20) Glucose (70-99(Fasting)) mg/dl Lactate (0.4-2.0) mmol/L Calcium (8.5-10.1) mg/dl Magnesium (1.7-2.4) mg/dl Total Bilirubin (0.2-1.0) mg/dl AST (13-39) U/L ALT (7-52) U/L Alkaline Phosphatase (34-104) U/L Ammonia (18-72) umol/L Total Creatine Kinase (26-192) U/L Troponin I High Sens (0-14) pg/ml C-Reactive Protein (0-0.5) mg/dl Total Protein (6.0-8.3) gm/dl Albumin (3.4-5.0) gm/dl Globulin (2.5-4.0) gm/dl Albumin/Globulin Ratio (0.9-2) TSH (0.300-4.500) uIu/ml Urine Color Urine Appearance (Clear) Urine pH (4.5-7.5) Ur Specific [place] (1.000-1.030) Urine Protein (Negative) Urine Glucose (UA) (Negative) Urine Ketones (Negative) Urine Blood (Negative) Urine Nitrite (Negative) Urine Bilirubin (Negative) Urine Urobilinogen (Negative) Ur Leukocyte Esterase (Negative) Salicylates < 3.0 L (3.0-30) mg/dl Acetaminophen < 3 L (10-30) ug/ml Ethyl Alcohol mg/dL < 10.0 (<10.0) mg/dl SARS-CoV-2, RNA, NAAT (NEGATIVE) 12/09/21 12/09/21 12/09/21 Range/Units 15:06 15:57 15:57 WBC (4.8-10.8) K/ul RBC (3.93-5.22) M/uL Hgb (12.0-16.0) g/dl Hct (34.1-44.9) % MCV (80.0-100.0) fL MCH (25.0-34.0) pg MCHC (32.0-36.0) g/dL RDW Std Deviation (36.4-46.3) fL RDW Coeff of Hilario (11.5-14.5) % Plt Count (130-400) K/uL MPV (9.4-12.3) fL Immature Gran % (Auto) % Neut % (Auto) % Lymph % (Auto) % Woodward % (Auto) % Eos % (Auto) % Baso % (Auto) % Neut # (Auto) (1.4-6.5) K/uL Lymph # (Auto) (1.2-3.4) K/uL [place]ward # (Auto) (0.24-0.82) K/uL Eos # (Auto) (0-0.50) K/uL Baso # (Auto) (0-0.2) K/uL Immature Gran # (Auto) (0.00-0.02) K/uL ESR (0-20) mm/hr Sodium (136-145) mmol/L Potassium (3.5-5.1) mmol/L Chloride (98-107) mmol/L Carbon Dioxide (21-32) mmol/L Anion Gap (3-11) BUN (6-23) mg/dl Creatinine (0.6-1.2) mg/dl Est Cr Clr Drug Dosing ml/min Est GFR ( Amer) ml/min Est GFR (Non-Af Amer) ml/min BUN/Creatinine Ratio (10-20) Glucose (70-99(Fasting)) mg/dl Lactate 0.9 (0.4-2.0) mmol/L Calcium (8.5-10.1) mg/dl Magnesium (1.7-2.4) mg/dl Total Bilirubin (0.2-1.0) mg/dl AST (13-39) U/L ALT (7-52) U/L Alkaline Phosphatase (34-104) U/L Ammonia 49.0 (18-72) umol/L Total Creatine Kinase (26-192) U/L Troponin I High Sens (0-14) pg/ml C-Reactive Protein 0.81 H (0-0.5) mg/dl Total Protein (6.0-8.3) gm/dl Albumin (3.4-5.0) gm/dl Globulin (2.5-4.0) gm/dl Albumin/Globulin Ratio (0.9-2) TSH (0.300-4.500) uIu/ml Urine Color Urine Appearance (Clear) Urine pH (4.5-7.5) Ur Specific [place] (1.000-1.030) Urine Protein (Negative) Urine Glucose (UA) (Negative) Urine Ketones (Negative) Urine Blood (Negative) Urine Nitrite (Negative) Urine Bilirubin (Negative) Urine Urobilinogen (Negative) Ur Leukocyte Esterase (Negative) Salicylates (3.0-30) mg/dl Acetaminophen (10-30) ug/ml Ethyl Alcohol mg/dL (<10.0) mg/dl SARS-CoV-2, RNA, NAAT (NEGATIVE) 12/09/21 12/09/21 Range/Units 17:31 17:50 WBC (4.8-10.8) K/ul RBC (3.93-5.22) M/uL Hgb (12.0-16.0) g/dl Hct (34.1-44.9) % MCV (80.0-100.0) fL MCH (25.0-34.0) pg MCHC (32.0-36.0) g/dL RDW Std Deviation (36.4-46.3) fL RDW Coeff of Hilario (11.5-14.5) % Plt Count (130-400) K/uL MPV (9.4-12.3) fL Immature Gran % (Auto) % Neut % (Auto) % Lymph % (Auto) % Woodward % (Auto) % Eos % (Auto) % Baso % (Auto) % Neut # (Auto) (1.4-6.5) K/uL Lymph # (Auto) (1.2-3.4) K/uL [place]ward # (Auto) (0.24-0.82) K/uL Eos # (Auto) (0-0.50) K/uL Baso # (Auto) (0-0.2) K/uL Immature Gran # (Auto) (0.00-0.02) K/uL ESR (0-20) mm/hr Sodium (136-145) mmol/L Potassium (3.5-5.1) mmol/L Chloride (98-107) mmol/L Carbon Dioxide (21-32) mmol/L Anion Gap (3-11) BUN (6-23) mg/dl Creatinine (0.6-1.2) mg/dl Est Cr Clr Drug Dosing ml/min Est GFR ( Amer) ml/min Est GFR (Non-Af Amer) ml/min BUN/Creatinine Ratio (10-20) Glucose (70-99(Fasting)) mg/dl Lactate (0.4-2.0) mmol/L Calcium (8.5-10.1) mg/dl Magnesium (1.7-2.4) mg/dl Total Bilirubin (0.2-1.0) mg/dl AST (13-39) U/L ALT (7-52) U/L Alkaline Phosphatase (34-104) U/L Ammonia (18-72) umol/L Total Creatine Kinase (26-192) U/L Troponin I High Sens (0-14) pg/ml C-Reactive Protein (0-0.5) mg/dl Total Protein (6.0-8.3) gm/dl Albumin (3.4-5.0) gm/dl Globulin (2.5-4.0) gm/dl Albumin/Globulin Ratio (0.9-2) TSH (0.300-4.500) uIu/ml Urine Color Dark Yellow Urine Appearance Clear (Clear) Urine pH 5.0 (4.5-7.5) Ur Specific [place] 1.028 (1.000-1.030) Urine Protein Negative (Negative) Urine Glucose (UA) Negative (Negative) Urine Ketones Trace H (Negative) Urine Blood Negative (Negative) Urine Nitrite Negative (Negative) Urine Bilirubin Negative (Negative) Urine Urobilinogen Negative (Negative) Ur Leukocyte Esterase Negative (Negative) Salicylates (3.0-30) mg/dl Acetaminophen (10-30) ug/ml Ethyl Alcohol mg/dL (<10.0) mg/dl SARS-CoV-2, RNA, NAAT NEGATIVE (NEGATIVE) Administered Medications Discontinued Medications Acetaminophen (Acetaminophen 1000 Mg/100 Ml Iv) 1,000 mg IV NOW STA Stop: 12/09/21 16:07 Last Admin: 12/09/21 16:32 Dose: 1,000 mg Documented by: [id number] Sodium Chloride (Nss 1000ml) 1,000 mls @ 999 mls/hr IV .[id number] SUSAN Stop: 12/09/21 15:45 Last Infusion: 12/09/21 16:20 Dose: 0 mls/hr Documented by: [id number] Admin: 12/09/21 14:59 Dose: 999 mls/hr Documented by: [id number] Ceftriaxone Sodium (Rocephin) 2,000 mg in 70 mls @ 140 mls/hr IV NOW STA Stop: 12/09/21 15:54 Last Infusion: 12/09/21 16:20 Dose: 0 mls/hr Documented by: [id number] Admin: 12/09/21 15:49 Dose: 140 mls/hr Documented by: [id number] Ketorolac Tromethamine (Ketorolac Tromethamine 15 Mg/Ml Vial) 15 mg IV NOW STA Stop: 12/09/21 16:08 Last Admin: 12/09/21 16:33 Dose: 15 mg Documented by: [id number] Lidocaine HCl (Xylocaine 1%/Sod Bicarb 20 Ml Vial) 20 ml INFIL NOW ONE Stop: 12/09/21 17:04 Last Admin: 12/09/21 18:40 Dose: Not Given Documented by: [id number] Imaging Data Radiologist's Impression: Chest X-Ray 12/09/21 14:43 SINGLE VIEW CHEST CLINICAL HISTORY: Generalized weakness. FINDINGS: An AP, portable, upright chest radiograph is compared to study dated 04/02/2020. The examination is degraded by portable technique and apical lordotic positioning. The cardiomediastinal silhouette is unremarkable. The lungs and pleural spaces are clear. No pneumothorax is seen. The bony thorax is grossly intact. IMPRESSION: No active disease in the chest. ACT 112: Negative or not required by law. Electronically signed by: Umair Parra M.D. 12/09/2021 4:[address] 12/09/21 14:43 CT SCAN OF THE BRAIN WITHOUT IV CONTRAST CLINICAL HISTORY: Change in mental status. COMPARISON STUDY: CT of the brain dated 08/24/2011. MRI of the brain dated 05/22/2021 TECHNIQUE: Unenhanced axial CT scan of the brain is performed from the vertex to the skull base. A dose lowering technique was utilized adhering to the principles of ALARA. The patient was scanned twice due to motion artifact. CT DOSE: 1228.53 mGy.cm FINDINGS: Brain parenchyma: The brain parenchyma is normal in appearance. There is no hemorrhage, mass effect, or evidence of acute territorial ischemia by CT criteria. Singh-white matter differentiation is preserved. No extra-axial fluid collection is seen. Ventricles, sulci, cisterns: Normal in configuration. Intracranial vasculature: The visualized intracranial vasculature at the skull base is normal in appearance. Calvarium: Unremarkable. Sinuses and mastoids: Moderate mucosal thickening is noted in the ethmoid sinuses. The remaining visualized paranasal sinuses are clear. The mastoid air cells are well pneumatized. Orbits: The bony orbits are grossly intact. IMPRESSION: There is no hemorrhage, mass effect, or evidence of acute territorial ischemia by CT criteria. ACT 112: Negative or not required by law. Electronically signed by: Umair Parra M.D. 12/09/2021 4:47 PM Discharge Plan Visit Data Chief Complaint: Altered Mental Status Stated Complaint: AMS ED Provider: Umair Barriga Discharge Problem: Altered mental status, Tachycardia, Leukocytosis, BRETT (acute kidney injury) Patient Disposition: Admitted As Inpatient Condition: Fair Forms Stand Alone Forms: [facility] [place] [employer] Prescriptions Prescriptions: No Action cholecalciferol (vitamin D3) 25 mcg (1,000 unit) capsule 25 mcg PO DAILY Qty: 30 RF: 5 prednisone 5 mg tablet 5 mg PO DAILY Qty: 60 RF: 0 pregabalin 50 mg capsule 50 mg PO DAILY Qty: 30 RF: 3 prednisone 10 mg tablet See Rx Instructions PO DAILY Qty: 7 RF: 0 rizatriptan 10 mg tablet See Rx Instructions .ROUTE .COMPLEX Qty: 9 RF: 2 levetiracetam 500 mg tablet See Rx Instructions .ROUTE .COMPLEX Qty: 60 RF: 3 prednisone 1 mg tablet See Rx Instructions PO DAILY Qty: 60 RF: 0 prednisone 10 mg tablet 10 mg PO DAILY Qty: 30 RF: 0 promethazine 25 mg tablet See Rx Instructions .ROUTE .COMPLEX Qty: 20 RF: 1 pregabalin 150 mg capsule 150 mg PO AMHS Qty: 60 RF: 0 medroxyprogesterone 150 mg/mL suspension 150 mg IM .[id number] RF: 0 Referrals Referrals: Uriah Bucio MD [Primary Care Provider] -
[2021-12-09 15:11] LABS: Basophils # (auto) 0.06 K/uL (0-0.2); Basophils % (auto) 0.4 %; Eosinophils # (auto) 0.27 K/uL (0-0.50); Eosinophils % (auto) 1.7 %; Hematocrit (blood only) 36.3 % (34.1-44.9); Hemoglobin 11.5 g/dl (12.0-16.0); Immature Granulocytes # (auto) 0.07 K/uL (0.00-0.02); Immature Granulocytes % (auto) 0.4 %; Lymphocytes # (auto) 3.95 K/uL (1.2-3.4); Lymphocytes % (auto) 24.7 %; Mean Corpuscular Hemoglobin 27.3 pg (25.0-34.0); Mean Corpuscular Hgb Conc 31.7 g/dL (32.0-36.0); Mean Corpuscular Volume 86.2 fL (80.0-100.0); Mean Platelet Volume 9.8 fL (9.4-12.3); Monocytes # (auto) 1.14 K/uL (0.24-0.82); Monocytes % (auto) 7.1 %; Neutrophils # (auto) 10.48 K/uL (1.4-6.5); Neutrophils % (auto) 65.7 %; Platelet Count 429 K/uL (130-400); RDW Coefficient of Variation 14.2 % (11.5-14.5); RDW Standard Deviation 44.8 fL (36.4-46.3); Red Blood Count 4.21 M/uL (3.93-5.22); White Blood Count 15.97 K/ul (4.8-10.8)
[2021-12-09] MEDS ORDERED: cefTRIAXone SODIUM 2,000 MG/70 ML BAG IV STA (15:25)
[2021-12-09 15:34] LABS: Acetaminophen < 3 ug/ml (10-30); Salicylate < 3.0 mg/dl (3.0-30)
[2021-12-09 15:40] LABS: Troponin I High Sensitivity 6.7 pg/ml (0-14)
[2021-12-09 15:58] LABS: Creatinine Clr Calc Pharmacy 61.2 ml/min
[2021-12-09 16:06] LABS: Albumin Globulin Ratio 1.3 (0.9-2); Albumin Level 4.1 gm/dl (3.4-5.0); BUN Creatinine Ratio 12.9 (10-20); Bilirubin,Total 0.3 mg/dl (0.2-1.0); Calcium 9.6 mg/dl (8.5-10.1); Est GFR (African American) 64.3 ml/min; Est GFR (Non-African American) 55.4 ml/min; Globulin 3.1 gm/dl (2.5-4.0); Magnesium 1.8 mg/dl (1.7-2.4); Potassium 3.9 mmol/L (3.5-5.1); Total Protein 7.2 gm/dl (6.0-8.3)
[2021-12-09] MEDS ORDERED: ACETAMINOPHEN 1000 MG/100 ML IV IV STA (16:06)
[2021-12-09] MEDS ORDERED: KETOROLAC TROMETHAMINE 15 MG/ML VIAL IV STA (16:07)
--- NOTE | 2021-12-09 16:09 | XRay Report ---
SINGLE VIEW CHEST CLINICAL HISTORY: Generalized weakness. FINDINGS: An AP, portable, upright chest radiograph is compared to study dated 04/02/2020. The examina tion is degraded by portable technique and apical lordotic positioning. The cardiomediastinal silhoue tte is unremarkable. The lungs and pleural spaces are clear. No pneumothorax is seen. The bony thorax is grossly intact. IMPRESSION: No active disease in the chest. ACT 112: Negative or not required by law. Electronically signed by: Umair Parra M.D. 12/09/2021 4:08 PM
--- NOTE | 2021-12-09 16:48 | CT Scan Report ---
CT SCAN OF THE BRAIN WITHOUT IV CONTRAST CLINICAL HISTORY: Change in mental status. COMPARISON STUDY: CT of the brain dated 08/24/2011. MRI of the brain dated 05/22/2021 TECHNIQUE: Unenhanced axial CT scan of the brain is performed from the vertex to the skull base. A d ose lowering technique was utilized adhering to the principles of ALARA. The patient was scanned twic e due to motion artifact. CT DOSE: 1228.53 mGy.cm FINDINGS: Brain parenchyma: The brain parenchyma is normal in appearance. There is no hemorrhage, mass effect, or evidence of acute territorial ischemia by CT criteria. Singh-white matter differentiation is preser mike. No extra-axial fluid collection is seen. Ventricles, sulci, cisterns: Normal in configuration. Intracranial vasculature: The visualized intracranial vasculature at the skull base is normal in appe arance. Calvarium: Unremarkable. Sinuses and mastoids: Moderate mucosal thickening is noted in the ethmoid sinuses. The remaining visu alized paranasal sinuses are clear. The mastoid air cells are well pneumatized. Orbits: The bony orbits are grossly intact. IMPRESSION: There is no hemorrhage, mass effect, or evidence of acute territorial ischemia by CT kelly oliver. ACT 112: Negative or not required by law. Electronically signed by: Umair Parra M.D. 12/09/2021 4:47 PM
--- NOTE | 2021-12-09 16:58 | Electrocardiogram Report ---
Test Reason : Blood Pressure : / mmHG Vent. Rate : 114 BPM Atrial Rate : 114 BPM P-R Int : 196 ms QRS Dur : 110 ms QT Int : 328 ms P-R-T Axes : 046 001 010 degrees QTc Int : 452 ms Sinus tachycardia Possible Left atrial enlargement Incomplete right bundle branch block Borderline ECG When compared with ECG of 25-MAR-2020 13:38, T wave inversion no longer evident in Anterior leads Confirmed by Chai Perry ([id number]) on 12/09/2021 4:58:00 PM Referred By: Confirmed By:Jarrod Perry
[2021-12-09] MEDS ORDERED: XYLOCAINE 1%/SOD BICARB 20 ML VIAL INFIL ONE (17:03)
[2021-12-09 17:50] LABS: Appearance Urine Clear (Clear); Bilirubin Urine Negative (Negative); Blood Urine Negative (Negative); Color Urine Dark Yellow; Glucose Urine UA Negative (Negative); Ketones Urine Trace (Negative); Leukocyte Esterase Urine Negative (Negative); Nitrite Urine Negative (Negative); Protein Urine Negative (Negative); Specific Gravity Urine 1.028 (1.000-1.030); Urobilinogen Urine Negative (Negative)
--- NOTE | 2021-12-09 17:52 | History & Physical Report ---
Date of Service December 09, 2021 Assessment & Plan (1) Narcolepsy: Plan: Suspected narcolepsy given history. Already has psychiatry follow up as outpatient and no inpatient psychiatric assessment per behavioral health is currently available. Consider starting on modafinil as outpatient if frequent or awaiting psychiatric diagnosis. UA negative for infection however WBC elevated, will trend with AM labs (2) Altered mental status: Plan: Suspect this is drowsiness prior to sleeping due to narcolepsy as above (3) Leukocytosis: Plan: Suspect stress reaction. If increasing consider dental imaging to assess for periapical abscess if she is having symptoms once awake and can exam her mouth properly (4) Poor dentition: Plan: Follow up with dentistry as outpatient (5) Polymyalgia rheumatica: Plan: Taking 13-14mg PO daily per - recommend clarifying with patient in AM to see what she is taking and prescribe. ESR adn symptoms (reportedly) significantly improved. This diagnosis was made after firbomyalgia therefore possibly can be weaned off Pregabalin as outpatient (6) Fibromyalgia: Plan: Unclear if this is a true diagnosis given PMR diagnosis as above and significant response to steroids Will hold her pregabalin currently due to unresponsive state (7) Seizure disorder: Plan: Continue Keppra 500mg PO BID Plan VTE Prophyalxis - chemical deferred as low risk as long as she wakes up and is m obile tomorrow Diet - regular Disposition - observation status to med/surg Admission and Anticipated Discharge Date Admission Date: December 09, 2021 History of Present Illness Chief Complaint: Altered mental state Primary Care Provider: Uriah Bucio MD Stephanie Aponte is a 36-year-old female who presents to the ER with altered mental state. Reportedly she was in her normal state of health walking around [employer] with her today. Suddenly she started speaking nonsensically and was wandering around the [employer] store. EMS were called as she suddenly became unresponsive therefore she was brought to the ER. The patient remains unresponsive in the ER. Her reports multiple episodes of similar occurrences and described similarly in previous hospitalization in February 2020. He reports her last similar episode was 1 month ago at the house as she was going up to lie down she looked she started to sleep walk was talking about random things and doing random stuff. Formal normal sentences however. After she just sleep it's off she goes back to her normal self. She has had episode like this for the last 2 years since increased stress due to deaths in the family and her husbands cancer diagnosis and associated has had her hair falling out. She was seen by outpatient sleep medicine and referred to psychiatry - presumably for possible narcolepsy diagnosis and has an intake appointment next month. She has had poor sleep pattern for many years proceeding this. He reports no recent changes to her medications. No known infections symptoms. She carries a prior diagnosis of myasthenia gravis, however recent and historical workup for this has been negative and she is no longer taking pyridostigmine. More recently she was prescribed prednisone starting in July and her reports significant improvement in her shoulder and muscle pains since starting on this. He reports she is on 13-14mg PO daily at present. Given continued unresponsiveness in the ER she was referred to medicine for admission and ongoing management of altered mental status. Allergies Allergy/AdvReac Type Severity Reaction Status Date / Time codeine Allergy Severe RASH, RESP Verified 12/09/21 19:42 PROBLEMS ciprofloxacin Allergy Mild ITCHY Verified 12/09/21 19:42 aspirin [From Soma Compound] Allergy Unknown Unknown Verified 12/09/21 19:42 sumatriptan Allergy Unknown SWELLING Verified 12/09/21 19:42 carisoprodol AdvReac Mild irrational Verified 12/09/21 19:42 behavior metoclopramide AdvReac Mild shaking Verified 12/09/21 19:42 morphine AdvReac Mild acts Verified 12/09/21 19:42 irrational azithromycin AdvReac Unknown [email or web address] Verified 12/09/21 19:42 sis topiramate [From Topamax] AdvReac insomnia Verified 12/09/21 19:42 Home Medications Medication Instructions Recorded Confirmed Type medroxyprogesterone 150 mg/mL 150 mg IM .[id number] 05/07/19 12/09/21 History intramuscular suspension cholecalciferol (vitamin D3) 25 25 mcg PO DAILY #30 caps 05/22/21 12/09/21 Rx mcg (1,000 unit) capsule pregabalin 50 mg capsule 50 mg PO DAILY #30 caps 08/11/21 12/09/21 Rx rizatriptan 10 mg tablet See Rx Instructions .Route 10/03/21 12/09/21 Rx .COMPLEX #9 tabs prednisone 10 mg tablet 10 mg PO DAILY #30 tabs 11/21/21 12/09/21 Rx pregabalin 150 mg capsule 150 mg PO AMHS #60 caps 12/02/21 12/09/21 Rx levetiracetam 500 mg tablet 500 mg PO BID 12/09/21 12/09/21 History prednisone 1 mg tablet 1 - 4 mg PO .DAILY UD 12/09/21 12/09/21 History promethazine 25 mg tablet 25 mg PO Q6 PRN Nausea 12/09/21 12/09/21 History rizatriptan 10 mg tablet 10 mg PO DIRECTED PRN Migraine 12/09/21 12/09/21 History Headache triamcinolone acetonide 0.1 % 1 applic topical BID 12/09/21 12/09/21 History topical cream Past Med/Surg History Medical History Crohn's disease Fibromyalgia Hypothyroidism Migraine syndrome Multifocal pneumonia Myasthenia gravis Seizure disorder (08/24/11) Surgical History History of lithotripsy S/P cholecystectomy S/P tonsillectomy and adenoidectomy Status post tubal ligation Family History Mother Diabetes Chronic kidney disease Hyperlipidemia Peripheral vascular disease Kidney disease Father Low back pain Brother Mental disability Family/Other Migraine headache Social History Smoking Status: Current every day smoker Tobacco Type: E-cigarettes / Vaping Cigarettes Per Day: vapes daily; Second Hand Exposure: No; Do You Dip or Chew Tobacco: No; Tobacco Cessation Education Requested by Patient: No Hx Alcohol Use: No Hx Substance Use: No (patient denies) Preferred Language: Slovenian Communication Ability: Effective Administrative Intern Required: No Beliefs That Will Affect Care: None marital status: Current Living Situation: Family Current Living Situation Comment: patient lives with and 16yo son in a house current occupational status: disabled Other Information That Helps Us Care for You: No Feels Safe at Home: Yes Safety Concerns: Feels Safe At This Time caffeine: Yes Dental Care, Regularly: No Physical Activity Frequency: 5-6 Times per Week Seatbelt Use: always Sunscreen Use: Yes Assistive Devices: None Review of Systems Review of Systems: Unobtainable due to cognitive status Recurrent gingivitis Physical Exam Constitutional: well developed and well nourished; no acute distress Eyes: PERRL, conjunctivae normal, anicteric sclerae ENMT: Mouth: + poor dentition Neck: trachea midline, no thyromegaly Respiratory: normal respiratory effort, lungs clear to auscultation Cardiovascular: RRR, no murmur, no edema Gastrointestinal (Abdomen): normal bowel sounds, soft, nontender, no hepatosplenomegaly Skin: no rashes, warm and dry Neurologic: plantar reflexes intact bilaterally; + does not move all extremities, + not awake (Unable to wake up with voice or noxious stimulation) and not confused Psychiatric: Orientation: + not alert and + not oriented x 3 Results & Data Results & Data ([facility]) Vital Signs (Past 12 Hours) Vital Signs Temp Pulse Resp BP Pulse Ox 12/09/21 17:02 88 17 112/87 95 12/09/21 17:00 82 91 12/09/21 16:30 84 14 95/73 L 92 12/09/21 16:02 99 H 23 160/122 H 91 12/09/21 16:00 93 H 15 91 12/09/21 15:47 89 12 131/87 94 12/09/21 15:30 99 H 8 L 92 12/09/21 15:00 106 H 8 L 91 12/09/21 14:51 108 H 19 93 12/09/21 14:43 36.8 C 120 H 10 L 178/112 H 94 Laboratory Results Abnormal lab results 12/09/21 12/09/21 12/09/21 Range/Units 14:55 14:55 14:55 WBC 15.97 H (4.8-10.8) K/ul Hgb 11.5 L (12.0-16.0) g/dl MCHC 31.7 L (32.0-36.0) g/dL Plt Count 429 H (130-400) K/uL Neut # (Auto) 10.48 H (1.4-6.5) K/uL Lymph # (Auto) 3.95 H (1.2-3.4) K/uL [place] # (Auto) 1.14 H (0.24-0.82) K/uL Immature Gran # (Auto) 0.07 H (0.00-0.02) K/uL ESR (0-20) mm/hr Chloride 111 H (98-107) mmol/L Creatinine 1.24 H (0.6-1.2) mg/dl Glucose 102 H (70-99(Fasting)) mg/dl C-Reactive Protein (0-0.5) mg/dl Urine Ketones (Negative) Salicylates < 3.0 L (3.0-30) mg/dl Acetaminophen < 3 L (10-30) ug/ml MDMA (Ecstasy) Screen (Neg) U Marijuana (THC) Screen (Neg) 12/09/21 12/09/21 12/09/21 Range/Units 15:06 15:06 17:31 WBC (4.8-10.8) K/ul Hgb (12.0-16.0) g/dl MCHC (32.0-36.0) g/dL Plt Count (130-400) K/uL Neut # (Auto) (1.4-6.5) K/uL Lymph # (Auto) (1.2-3.4) K/uL [place] # (Auto) (0.24-0.82) K/uL Immature Gran # (Auto) (0.00-0.02) K/uL ESR 26 H (0-20) mm/hr Chloride (98-107) mmol/L Creatinine (0.6-1.2) mg/dl Glucose (70-99(Fasting)) mg/dl C-Reactive Protein 0.81 H (0-0.5) mg/dl Urine Ketones Trace H (Negative) Salicylates (3.0-30) mg/dl Acetaminophen (10-30) ug/ml MDMA (Ecstasy) Screen (Neg) U Marijuana (THC) Screen (Neg) 12/09/21 Range/Units 17:31 WBC (4.8-10.8) K/ul Hgb (12.0-16.0) g/dl MCHC (32.0-36.0) g/dL Plt Count (130-400) K/uL Neut # (Auto) (1.4-6.5) K/uL Lymph # (Auto) (1.2-3.4) K/uL [place] # (Auto) (0.24-0.82) K/uL Immature Gran # (Auto) (0.00-0.02) K/uL ESR (0-20) mm/hr Chloride (98-107) mmol/L Creatinine (0.6-1.2) mg/dl Glucose (70-99(Fasting)) mg/dl C-Reactive Protein (0-0.5) mg/dl Urine Ketones (Negative) Salicylates (3.0-30) mg/dl Acetaminophen (10-30) ug/ml MDMA (Ecstasy) Screen Pos H (Neg) U Marijuana (THC) Screen Pos H (Neg) Diagnostic Findings SINGLE VIEW CHEST CLINICAL HISTORY: Generalized weakness. FINDINGS: An AP, portable, upright chest radiograph is compared to study dated 04/02/2020. The examination is degraded by portable technique and apical lordotic positioning. The cardiomediastinal silhouette is unremarkable. The lungs and pleural spaces are clear. No pneumothorax is seen. The bony thorax is grossly intact. IMPRESSION: No active disease in the chest. CT SCAN OF THE BRAIN WITHOUT IV CONTRAST CLINICAL HISTORY: Change in mental status. COMPARISON STUDY: CT of the brain dated 08/24/2011. MRI of the brain dated 05/22/2021 TECHNIQUE: Unenhanced axial CT scan of the brain is performed from the vertex to the skull base. A dose lowering technique was utilized adhering to the principles of ALARA. The patient was scanned twice due to motion artifact. CT DOSE: 1228.53 mGy.cm FINDINGS: Brain parenchyma: The brain parenchyma is normal in appearance. There is no hemorrhage, mass effect, or evidence of acute territorial ischemia by CT criteria. Singh-white matter differentiation is preserved. No extra-axial fluid collection is seen. Ventricles, sulci, cisterns: Normal in configuration. Intracranial vasculature: The visualized intracranial vasculature at the skull base is normal in appearance. Calvarium: Unremarkable. Sinuses and mastoids: Moderate mucosal thickening is noted in the ethmoid sinuses. The remaining visualized paranasal sinuses are clear. The mastoid air cells are well pneumatized. Orbits: The bony orbits are grossly intact. IMPRESSION: There is no hemorrhage, mass effect, or evidence of acute territorial ischemia by CT criteria. Medications Administered ER Medications Given: NSS 1L bolus Ceftriaxone 2g IV Acetaminophen 1g IV Toradol 15mg IV ECG Indication: altered mental status Rate (beats per minute): 114 Rhythm: sinus tachycardia Findings: + RBBB (incomplete) Comparison ECG Date: from (March 25, 2020) Change: the following changes noted (T wave inversion no longer evident in Anterior leads) Code Status & VTE Plan Code Status Full VTE Prophylaxis Plan VTE Prophylaxis will be ordered: No Reason for no VTE drug order: Treatment not indicated Reason for no VTE mechanical prophylaxis: Treatment not indicated PG Care Time/CCT Total # of Minutes Spent Total Time Spent with Patient: Total time spent is greater than 50% in coordination of care (as documented) at patient's floor/unit and/or counseling patient: Coding Level of Care Code INT OBSERVATION CARE 70M LVL 3 Diagnoses Narcolepsy G47.419 Altered mental status R40.0 Altered mental status type: somnolence Leukocytosis D72.829 Leukocytosis type: unspecified Poor dentition K08.9 Polymyalgia rheumatica M35.3 Fibromyalgia M79.7 Seizure disorder G40.909 (1) Altered mental status Altered mental status type: somnolence Qualified Code(s): R40.0 - Somnolence (2) Leukocytosis Leukocytosis type: unspecified Qualified Code(s): D72.829 - Elevated white blood cell count, unspecified
[2021-12-09 18:44] LABS: Amphetamines+Metham, Urine Neg (Neg); Barbiturates, Urine Neg (Neg); Benzodiazepine, Urine Neg (Neg); Cocaine, Urine Neg (Neg); MDMA (Ecstacy), Urine Pos (Neg); Methadone, Urine Neg (Neg); Opiate, Urine Neg (Neg); Phencyclidine, Urine Neg (Neg)
[2021-12-09] MEDS ORDERED: ACETAMINOPHEN 325 MG TAB PO PRN (20:58)
[2021-12-09] MEDS: LACTATED RINGER'S 1,000 ML IV SCH (21:15)
[2021-12-09] MEDS: levETIRAcetam 500 MG TAB PO SCH (21:39)
[2021-12-10] MEDS: LACTATED RINGER'S 1,000 ML IV SCH (05:29)
[2021-12-10 07:35] LABS: Basophils # (auto) 0.04 K/uL (0-0.2); Basophils % (auto) 0.3 %; Eosinophils # (auto) 0.26 K/uL (0-0.50); Eosinophils % (auto) 2.1 %; Hematocrit (blood only) 31.9 % (34.1-44.9); Hemoglobin 10.1 g/dl (12.0-16.0); Immature Granulocytes # (auto) 0.04 K/uL (0.00-0.02); Immature Granulocytes % (auto) 0.3 %; Lymphocytes # (auto) 3.74 K/uL (1.2-3.4); Lymphocytes % (auto) 29.6 %; Mean Corpuscular Hemoglobin 26.8 pg (25.0-34.0); Mean Corpuscular Hgb Conc 31.7 g/dL (32.0-36.0); Mean Corpuscular Volume 84.6 fL (80.0-100.0); Mean Platelet Volume 9.8 fL (9.4-12.3); Monocytes # (auto) 1.05 K/uL (0.24-0.82); Monocytes % (auto) 8.3 %; Neutrophils # (auto) 7.52 K/uL (1.4-6.5); Neutrophils % (auto) 59.4 %; Platelet Count 323 K/uL (130-400); RDW Coefficient of Variation 14.2 % (11.5-14.5); RDW Standard Deviation 43.9 fL (36.4-46.3); Red Blood Count 3.77 M/uL (3.93-5.22); White Blood Count 12.65 K/ul (4.8-10.8)
[2021-12-10 08:03] LABS: BUN Creatinine Ratio 18.5 (10-20); Calcium 8.3 mg/dl (8.5-10.1); Creatinine Clr Calc Pharmacy 70.9 ml/min; Est GFR (African American) 92.2 ml/min; Est GFR (Non-African American) 79.5 ml/min; Potassium 4.2 mmol/L (3.5-5.1)
[2021-12-10] MEDS: levETIRAcetam 500 MG TAB PO SCH (08:09)
[2021-12-10] MEDS ORDERED: CHOLECALCIFEROL 1,000 UNITS 25 MCG TAB PO SCH (09:00)
--- NOTE | 2021-12-10 15:53 | Discharge Summary ---
Date of Service December 10, 2021 Admission HPI Per Admitting Provider Stephanie Aponte is a 36-year-old female who presents to the ER with altered mental state. Reportedly she was in her normal state of health walking around [employer] with her today. Suddenly she started speaking nonsensically and was wandering around the [employer] store. EMS were called as she suddenly became unresponsive therefore she was brought to the ER. The patient remains unresponsive in the ER. Her reports multiple episodes of similar occurrences and described similarly in previous hospitalization in February 2020. He reports her last similar episode was 1 month ago at the house as she was goi ng up to lie down she looked she started to sleep walk was talking about random things and doing random stuff. Formal normal sentences however. After she just sleep it's off she goes back to her normal self. She has had episode like this for the last 2 years since increased stress due to deaths in the family and her husbands cancer diagnosis and associated has had her hair falling out. She was seen by outpatient sleep medicine and referred to psychiatry - presumably for possible narcolepsy diagnosis and has an intake appointment next month. She has had poor sleep pattern for many years proceeding this. He reports no recent changes to her medications. No known infections symptoms. She carries a prior diagnosis of myasthenia gravis, however recent and historical workup for this has been negative and she is no longer taking pyridostigmine. More recently she was prescribed prednisone starting in July and her reports significant improvement in her shoulder and muscle pains since starting on this. He reports she is on 13-14mg PO daily at present. Given continued unresponsiveness in the ER she was referred to medicine for admission and ongoing management of altered mental status. Principal Diagnosis acute metabolic encephalopathy Discharge Exam The patient is awake, alert and oriented 3, well developed and well nourished, normocephalic and atraumatic, lying in bed and in no acute distress. HEENT--PERRL, EOMI, mucous membranes and oropharynx mildly dry Neck--supple. No JVD. No bruits. Thyroid normal, trachea midline, no adenopathy. Heart--normal S1 and S2. No murmurs, rubs or gallops. Lungs--clear bilaterally, no respiratory distress, no accessory muscle use. Abdomen--normal bowel sounds and soft. Mild epigastric and left sided abdominal pain Extremities--no cyanosis or clubbing. No edema. Dermatologic--normal skin turgor, normal color, no abnormal lymph nodes, no rash. Neurologic--cranial nerves II through XII grossly intact. Rheumatologic--normal range of motion. Psychiatric--normal affect. Discharge Data Allergies Allergy/AdvReac Type Severity Reaction Status Date / Time codeine Allergy Severe RASH, RESP Verified 12/09/21 19:42 PROBLEMS ciprofloxacin Allergy Mild ITCHY Verified 12/09/21 19:42 aspirin [From Soma Compound] Allergy Unknown Unknown Verified 12/09/21 19:42 sumatriptan Allergy Unknown SWELLING Verified 12/09/21 19:42 carisoprodol AdvReac Mild irrational Verified 12/09/21 19:42 behavior metoclopramide AdvReac Mild shaking Verified 12/09/21 19:42 morphine AdvReac Mild acts Verified 12/09/21 19:42 irrational azithromycin AdvReac Unknown [email or web address] Verified 12/09/21 19:42 sis topiramate [From Topamax] AdvReac insomnia Verified 12/09/21 19:42 Consultations 12/09/21 17:30 ED Decision to Admit Stat Ordered Studies 12/09/21 14:43 CT head/brain wo con Stat Hospital Course (1) Acute encephalopathy: acute metabolic encephlalopathy secondary to [place], marijuana. Although patient denies any drug use, but urine tox was positive for MDMA and Marijuana she was awake and alert when I saw her, although still very jumpy and nervous (2) Narcolepsy: Suspected narcolepsy given history. Already has psychiatry follow up as outpatient and no inpatient psychiatric assessment per behavioral health is currently available. Consider starting on modafinil as outpatient if frequent or awaiting psychiatric diagnosis. UA negative for infection however WBC elevated, will trend with AM labs (3) Altered mental status: Suspect this is drowsiness prior to sleeping due to narcolepsy as above (4) Leukocytosis: Suspect stress reaction. If increasing consider dental imaging to assess for periapical abscess if she is having symptoms once awake and can exam her mouth properly (5) Poor dentition: Follow up with dentistry as outpatient (6) Polymyalgia rheumatica: Taking 13-14mg PO daily per - recommend clarifying with patient in AM to see what she is taking and prescribe. ESR adn symptoms (reportedly) significantly improved. This diagnosis was made after firbomyalgia therefore possibly can be weaned off Pregabalin as outpatient (7) Fibromyalgia: Unclear if this is a true diagnosis given PMR diagnosis as above and significant response to steroids Will hold her pregabalin currently due to unresponsive state (8) Seizure disorder: Continue Keppra 500mg PO BID Plan VTE Prophyalxis - chemical deferred as low risk as long as she wakes up and is mobile tomorrow Diet - regular Disposition - observation status to med/surg Total Time Total Time Spent Total Time Spent (In Minutes): 35 Discharge Plan Discharge Items Patient Disposition: Home - Self-Care Reason For Visit: SUSPECTED NARCOLEPSY Discharge Diagnosis: acute toxic encephalopathy Condition on Discharge: Fair Activity: Resume your previous activity Non-emergency contact: Primary Care Provider and Neurologist Call non-emergency contact if: you have any medication questions Follow-up/Referrals: Uriah Bucio MD [Primary Care Provider] - 12/17/21 3:30 pm Diet: Regular Addtl Attending Provider Instructions: please make appointment to follow up with your regular doctors Pending Studies at Discharge: No Stand-Alone Forms: My [facility] [employer], Smoking Cessation Medications and DC Order Prescriptions: Continued cholecalciferol (vitamin D3) 25 mcg (1,000 unit) capsule 25 mcg PO DAILY Qty: 30 5RF pregabalin 50 mg capsule 50 mg PO DAILY Qty: 30 3RF Rx Instructions: TAKES @1600 rizatriptan 10 mg tablet See Rx Instructions .ROUTE .COMPLEX Qty: 9 2RF Dose Instruction: take 1 tablet by mouth if needed for migraines MAY REPEAT AFTER 2 HOURS NEEDED Rx Instructions: take 1 tablet by mouth if needed for migraines MAY REPEAT AFTER 2 HOURS NEEDED prednisone 10 mg tablet 10 mg PO DAILY Qty: 30 0RF pregabalin 150 mg capsule 150 mg PO AMHS Qty: 60 0RF Rx Instructions: also takes 50mg at 4pm medroxyprogesterone 150 mg/mL suspension 150 mg IM .[id number] Rx Instructions: PER PT "APPT ON September". every 12 weeks rizatriptan 10 mg tablet 10 mg PO DIRECTED PRN (Reason: Migraine Headache) triamcinolone acetonide 0.1 % cream 1 applic TOPICAL BID Rx Instructions: FOR UP TP 6 WEEKS promethazine 25 mg tablet 25 mg PO Q6 PRN (Reason: Nausea) levetiracetam 500 mg tablet 500 mg PO BID Rx Instructions: take 1 tablet by mouth twice a day prednisone 1 mg tablet 1 - 4 mg PO .DAILY UD Rx Instructions: 1-4 daily as directed Discharge Orders: Discharge Order (Routine); Ordered 12/10/21 Ordered By: Cary Armstrong Admission Data Admit Date/Time: 12/09/21 18:25 Attending Provider: Cary Armstrong Admit Provider: Emmanuel Loya Primary Care Provider: Uriah Bucio Other Providers: Emmanuel Loya Other Interventions: Discharge Summary Assessment (RN) Last Done: 12/10/21 11:03 Coding Level of Care Code D/C DAY MANAGEMENT >30 MINS Diagnoses Acute encephalopathy G93.40 Narcolepsy G47.419 Altered mental status R40.0 Altered mental status type: somnolence Leukocytosis D72.829 Leukocytosis type: unspecified Poor dentition K08.9 Polymyalgia rheumatica M35.3 Fibromyalgia M79.7 Seizure disorder G40.909 Time Spent (min) 35
== END 2021-12-10 12:42 | disposition home or self-care (01) ==
LOC: 3E 14:28 → ED 14:28 → SUATTDRO 18:25 → 3E 20:04